=== PATIENT | female | born 1955 | race Caucasian/White ===

== ENCOUNTER → 2016-12-08 | Outpatient (CLI) | payer BC ==
[~2016-12-08] MED LIST: ALBU2.5V4 INH; BUDE0.5A5 NEB; CETI10TA20 PO; CODE118S2 PO; DICY20TA10 PO; EPIN0.153 IM; HYDR12.5 PO; LACT1CAP8 PO; LEVO75TA6 PO; METO-270 PO; MNTL10T PO; NFLOSA25TA PO; OMG1KC PO; VANCORAL PO
[2016-12-08 12:13] LABS: BASOPHILS % (AUTO) 1 % (0-2); EOSINOPHILS # (AUTO) 0.3 10^3uL; EOSINOPHILS % (AUTO) 2 % (0-4); LYMPHOCYTES # (AUTO) 1.9 X10^3; MEAN CORPUSCULAR HEMOGLOBIN 29.5 PG (26.0-34.0); MEAN CORPUSCULAR HGB CONC 34.3 g/dL (31.0-37.0); MEAN CORPUSCULAR VOLUME 86 FL (80-100); MEAN PLATELET VOLUME 10.2 FL (6.0-9.5); MONOCYTES # (AUTO) 1.2 X10^3; MONOCYTES % (AUTO) 9 % (3-11); NEUTROPHILS % (AUTO) 73 % (51-67); PLATELET COUNT 352 10^3uL (150-450); WHITE BLOOD COUNT 13.57 10^3uL (4.0-11.0)
[2016-12-08 12:25] LABS: ANION GAP 16.8 MEQ/L (3-15)
== END ==
LOC: LAB 11:59
PROVIDERS: ATTEND Internal Medicine
DX: E86.0 Dehydration (principal); J20.8 Acute bronchitis due to other specified organisms
CPT/HCPCS: 36415; 80048; 84450; 85025; 86140

== ENCOUNTER → 2016-12-09 | Outpatient (CLI) | payer BC | LOC: LAB 09:35 | PROVIDERS: ATTEND Internal Medicine | DX: R19.7 Diarrhea, unspecified (principal) | CPT/HCPCS: 87324; 87449 ==

== ENCOUNTER → 2016-12-12 | Outpatient (CLI) | payer BC ==
[2016-12-12 15:48] LABS: BASOPHILS % (AUTO) 1 % (0-2); EOSINOPHILS # (AUTO) 0.4 10^3uL; EOSINOPHILS % (AUTO) 3 % (0-4); LYMPHOCYTES # (AUTO) 2.2 X10^3; MEAN CORPUSCULAR HEMOGLOBIN 28.5 PG (26.0-34.0); MEAN CORPUSCULAR HGB CONC 34.4 g/dL (31.0-37.0); MEAN CORPUSCULAR VOLUME 83 FL (80-100); MEAN PLATELET VOLUME 10.1 FL (6.0-9.5); MONOCYTES # (AUTO) 1.2 X10^3; MONOCYTES % (AUTO) 8 % (3-11); NEUTROPHILS # (AUTO) 10.3 X10^3; NEUTROPHILS % (AUTO) 72 % (51-67); PLATELET COUNT 387 10^3uL (150-450); WHITE BLOOD COUNT 14.17 10^3uL (4.0-11.0)
[2016-12-12 16:01] LABS: ANION GAP 14.1 MEQ/L (3-15)
--- NOTE | 2016-12-12 16:11 | Diagnostic Imaging Report ---
CLINICAL INDICATION: Patient with acute bronchitis. EXAM: Chest x-ray, PA and lateral views. COMPARISONS: Chest x-ray dated 06/12/2010. FINDINGS: Lungs/pleura: There is interval development of minimal discoid atelectasis in the lingula region. Otherwise, lungs are clear. There is no pneumothorax. There is no pleural effusion. Mediastinum: Unremarkable. Pulmonary vasculature: Unremarkable. Heart: Unremarkable. Bones/extrathoracic soft tissue: There are degenerative osteophytes scattered throughout the thoracic spine. IMPRESSION: Interval development of minimal lingular discoid atelectasis. Otherwise, there is no radiographic evidence of acute cardiopulmonary process. Dictated by: Dictated on workstation # [id number]
== END ==
LOC: LAB 15:36
PROVIDERS: ATTEND Internal Medicine
DX: I10 Essential (primary) hypertension (principal); J20.8 Acute bronchitis due to other specified organisms; J30.1 Allergic rhinitis due to pollen
CPT/HCPCS: 36415; 71020; 80048; 84450; 85025; 86140

== ENCOUNTER → 2016-12-14 | Outpatient (CLI) | payer BC ==
[2016-12-14] MEDS: ALBUTEROL 0.5% NEB SOLUTION 2.5 MG/0.5 ML VIAL INH SCH ×2 (11:48→15:34)
[2016-12-14] MEDS: BUDESONIDE NEBS 0.5 MG/2ML (PULMICORT) AMP INH SCH ×2 (11:49→15:34)
== END ==
LOC: RT 11:33
PROVIDERS: ATTEND Internal Medicine
DX: J45.41 Moderate persistent asthma with (acute) exacerbation (principal)
CPT/HCPCS: 94640

== ENCOUNTER 2016-12-17 14:19 | Emergency (ER) | payer BC ==
[~2016-12-17] VITALS: Ht 167.6 cm; Wt 96.1 kg
[2016-12-17] MEDS ORDERED: ALBU2.5V4 INH (15:27)
[2016-12-17] MEDS ORDERED: METO-270 PO (15:27)
[2016-12-17] MEDS ORDERED: MNTL10T PO (15:27)
[2016-12-17] MEDS ORDERED: CODE118S2 PO (15:27)
[2016-12-17] MEDS ORDERED: OMG1KC PO (15:27)
[2016-12-17] MEDS ORDERED: CETI10TA20 PO (15:27)
[2016-12-17] MEDS ORDERED: LACT1CAP8 PO (15:27)
[2016-12-17] MEDS ORDERED: NFLOSA25TA PO (15:27)
[2016-12-17] MEDS ORDERED: EPIN0.153 IM (15:27)
[2016-12-17] MEDS ORDERED: BUDE0.5A5 NEB (15:27)
[2016-12-17] MEDS ORDERED: HYDR12.5 PO (15:27)
[2016-12-17] MEDS ORDERED: LEVO75TA6 PO (15:27)
[2016-12-17] MEDS ORDERED: VANCORAL PO (15:27)
[2016-12-17 15:36] LABS: TOTAL PROTEIN 7.1 g/dL (6.4-8.5)
[2016-12-17] MEDS ORDERED: DICYCLOMINE 10 MG (BENTYL) CAP PO ONE (15:55)
[2016-12-17 16:32] LABS: BILIRUBIN,URINE Negative (Negative); CLARITY,URINE Clear; COLOR,URINE Yellow; GLUCOSE, URINE (UA) Negative (Negative); LEUKOCYTE ESTERASE ,URINE Negative (Negative); UROBILINOGEN,URINE 0.2 mg/dL (0.2-1.0)
--- NOTE | 2016-12-17 16:39 | NUR ---
lab states nasal swab unable to be found in lab. dr notified. cl
--- NOTE | 2016-12-17 16:41 | NUR ---
2ND INFLUENZA SPECIMEN OBTAINED. CL
[2016-12-17 16:53] LABS: RBC,URINE None Seen /HPF; URINE CENTRIFUGED VOLUME 12 mL
[2016-12-17 16:59] LABS: INFLUENZA VIRUS TYPE A ANTIBOD Negative (NEGATIVE); INFLUENZA VIRUS TYPE B ANTIBOD Negative (NEGATIVE)
--- NOTE | 2016-12-17 17:33 | NUR ---
DR CORBIN CALLS DR TORO RE PT. CL
[2016-12-17] MEDS ORDERED: DICY20TA10 PO (18:07)
--- NOTE | 2016-12-17 18:13 | Diagnostic Imaging Report ---
PROCEDURE: US abdomen complete. TECHNIQUE: Multiple real-time grayscale images were obtained over the abdomen in various projections. INDICATION: Abdominal pain with nausea. FINDINGS: The liver parenchyma is homogeneous. The liver measures 16 cm in the mid liver axis. The bile ducts are not dilated. The common duct measures 6 mm. The gallbladder shows multiple small gallstones. Gallbladder wall is not thickened at 2 mm. No pericholecystic edema. The portal and hepatic vein are patent. Right kidney measures 12.4 x 6 x 6.4 cm. The left kidney measures 11.9 x 5.4 x 4.9 cm. The pancreas does show a cyst within the head of the pancreas measuring approximately 1.9 x 1.5 cm. The spleen appears normal. There is no ascites. IMPRESSION: 1. Cholelithiasis with multiple gallstones demonstrated. No evidence of gallbladder wall thickening or bile duct dilatation. 2. Cyst in the head of the pancreas measuring 1.9 x 1.5 cm. This does correlate with hypodense lesion noted on the CT scan of 08/07/2013. Dictated by: Dictated on workstation # [id number]
[2016-12-17 18:15] VITALS: BP 113/50
== END 2016-12-17 18:12 | disposition home or self-care (01) ==
LOC: ED 14:21
DX: J06.9 Acute upper respiratory infection, unspecified (principal); R10.84 Generalized abdominal pain; R19.7 Diarrhea, unspecified; R94.5 Abnormal results of liver function studies; Z87.891 Personal history of nicotine dependence
CPT/HCPCS: 36415; 76700; 80076; 81003; 81015; 84443; 87486; 87502; 87581; 87633; 87798; 99283

== ENCOUNTER → 2016-12-17 | Outpatient (CLI) | payer BC ==
[2016-12-17 13:14] LABS: MEAN CORPUSCULAR HEMOGLOBIN 28.2 PG (26.0-34.0); MEAN CORPUSCULAR VOLUME 83 FL (80-100); MEAN PLATELET VOLUME 10.3 FL (6.0-9.5); PLATELET COUNT 356 10^3uL (150-450); WHITE BLOOD COUNT 18.66 10^3uL (4.0-11.0)
[2016-12-17 13:27] LABS: BAND NEUTROPHILS % 0 % (0-6); EOSINOPHILS % 0 % (0-4); LYMPHOCYTES # 0.9 #; MONOCYTES # 0.5 #; MONOCYTES % 3 % (3-11); SEGMENTED NEUTROPHILS % 91 % (51-67); TOTAL CELLS COUNTED 100
[2016-12-17 13:28] LABS: RBC MORPH NORMAL (NORMAL)
[2016-12-17 13:34] LABS: ANION GAP 16.1 MEQ/L (3-15)
--- NOTE | 2016-12-17 14:45 | Diagnostic Imaging Report ---
INDICATION: Asthma with status asthmaticus Comparison study: Chest from December 12. FINDINGS: Frontal and lateral views of the chest demonstrates linear atelectasis in the lingula. Lungs otherwise clear. The heart and vascularity are normal. IMPRESSION: There is mild atelectasis in the lingula. Dictated by: Dictated on workstation # [id number]
== END ==
LOC: RAD 13:02
PROVIDERS: ATTEND Internal Medicine
DX: J45.41 Moderate persistent asthma with (acute) exacerbation (principal); A04.7 Enterocolitis due to Clostridium difficile; I10 Essential (primary) hypertension
CPT/HCPCS: 36415; 71020; 80048; 82150; 83690; 85025; 86140

== ENCOUNTER → 2016-12-20 | Outpatient (REF) ==
[2016-12-20 19:14] LABS: BASOPHILS % (AUTO) 1 % (0-2); EOSINOPHILS # (AUTO) 0.3 10^3uL; EOSINOPHILS % (AUTO) 3 % (0-4); LYMPHOCYTES # (AUTO) 1.4 X10^3; MEAN CORPUSCULAR HEMOGLOBIN 29.9 PG (26.0-34.0); MEAN CORPUSCULAR HGB CONC 34.3 g/dL (31.0-37.0); MEAN CORPUSCULAR VOLUME 87 FL (80-100); MEAN PLATELET VOLUME 11.2 FL (6.0-9.5); MONOCYTES # (AUTO) 0.7 X10^3; MONOCYTES % (AUTO) 8 % (3-11); NEUTROPHILS # (AUTO) 6.9 X10^3; NEUTROPHILS % (AUTO) 74 % (51-67); PLATELET COUNT 309 10^3uL (150-450); WHITE BLOOD COUNT 9.35 10^3uL (4.0-11.0)
== END ==
LOC: LAB 17:28
PROVIDERS: ATTEND Internal Medicine
DX: R19.7 Diarrhea, unspecified (principal); J20.8 Acute bronchitis due to other specified organisms; R74.0 Nonspecific elevation of levels of transaminase and lactic acid dehydrogenase [LDH]
CPT/HCPCS: 84450; 85025; 86140

== ENCOUNTER → 2017-02-21 | Outpatient (REF) | payer BC ==
[2017-02-21 11:57] LABS: BASOPHILS % (AUTO) 0 % (0-2); EOSINOPHILS # (AUTO) 0.3 10^3uL; EOSINOPHILS % (AUTO) 2 % (0-4); LYMPHOCYTES # (AUTO) 1.4 X10^3; MEAN CORPUSCULAR HEMOGLOBIN 28.3 PG (26.0-34.0); MEAN CORPUSCULAR VOLUME 86 FL (80-100); MEAN PLATELET VOLUME 10.4 FL (6.0-9.5); MONOCYTES # (AUTO) 0.7 X10^3; MONOCYTES % (AUTO) 6 % (3-11); NEUTROPHILS # (AUTO) 9.2 X10^3; NEUTROPHILS % (AUTO) 79 % (51-67); PLATELET COUNT 317 10^3uL (150-450); WHITE BLOOD COUNT 11.71 10^3uL (4.0-11.0)
[2017-02-21 12:33] LABS: ERYTHROCYTE SEDIMENTATION RT* 33 mm/hr (0-23)
[2017-02-21 12:34] LABS: ALBUMIN 4.5 g/dL (3.4-5.0); ANION GAP 15.8 MEQ/L (3-15); CALCULATED IONIZED CALCIUM 4.2 mg/dL (3.8-4.6)
== END ==
LOC: LAB 11:33
PROVIDERS: ATTEND Internal Medicine
DX: M54.5 Low back pain (principal); I10 Essential (primary) hypertension; E03.8 Other specified hypothyroidism
CPT/HCPCS: 80053; 80061; 84443; 85025; 85652; 86803

== ENCOUNTER → 2017-04-01 | Outpatient (REF) | payer BC ==
[2017-04-01 16:47] LABS: BASOPHILS % (AUTO) 1 % (0-2); EOSINOPHILS # (AUTO) 0.2 10^3uL; EOSINOPHILS % (AUTO) 2 % (0-4); LYMPHOCYTES # (AUTO) 1.6 X10^3; MEAN CORPUSCULAR HEMOGLOBIN 28.4 PG (26.0-34.0); MEAN CORPUSCULAR HGB CONC 33.1 g/dL (31.0-37.0); MEAN CORPUSCULAR VOLUME 86 FL (80-100); MEAN PLATELET VOLUME 10.7 FL (6.0-9.5); MONOCYTES # (AUTO) 0.9 X10^3; MONOCYTES % (AUTO) 9 % (3-11); NEUTROPHILS # (AUTO) 7.9 X10^3; NEUTROPHILS % (AUTO) 74 % (51-67); PLATELET COUNT 298 10^3uL (150-450); WHITE BLOOD COUNT 10.74 10^3uL (4.0-11.0)
[2017-04-01 16:56] LABS: ANION GAP 17.9 MEQ/L (3-15)
[2017-04-01 16:57] LABS: ALBUMIN 4.4 g/dL (3.4-5.0); TOTAL PROTEIN 8.1 g/dL (6.4-8.5)
[2017-04-01 17:29] LABS: ERYTHROCYTE SEDIMENTATION RT* 32 mm/hr (0-23)
== END ==
LOC: LAB 16:27
PROVIDERS: ATTEND Internal Medicine
DX: R10.11 Right upper quadrant pain (principal); K80.20 Calculus of gallbladder without cholecystitis without obstruction; K58.9 Irritable bowel syndrome, unspecified; I10 Essential (primary) hypertension
CPT/HCPCS: 80048; 80076; 82150; 83690; 85025; 85652

== ENCOUNTER → 2017-04-02 | Outpatient (CLI) | payer BC ==
[2017-04-02 10:40] LABS: BASOPHILS % (AUTO) 1 % (0-2); EOSINOPHILS # (AUTO) 0.2 10^3uL; EOSINOPHILS % (AUTO) 2 % (0-4); LYMPHOCYTES # (AUTO) 1.1 X10^3; MEAN CORPUSCULAR HEMOGLOBIN 28.2 PG (26.0-34.0); MEAN CORPUSCULAR HGB CONC 32.8 g/dL (31.0-37.0); MEAN CORPUSCULAR VOLUME 86 FL (80-100); MEAN PLATELET VOLUME 10.4 FL (6.0-9.5); MONOCYTES # (AUTO) 0.5 X10^3; MONOCYTES % (AUTO) 5 % (3-11); NEUTROPHILS # (AUTO) 7.4 X10^3; NEUTROPHILS % (AUTO) 80 % (51-67); PLATELET COUNT 283 10^3uL (150-450); WHITE BLOOD COUNT 9.24 10^3uL (4.0-11.0)
--- NOTE | 2017-04-02 11:03 | Diagnostic Imaging Report ---
PROCEDURE: US abdomen complete. TECHNIQUE: Multiple real-time grayscale images were obtained over the abdomen in various projections. Comparison with 12/17/2016 INDICATION: Acute upper abdominal pain. FINDINGS: Liver parenchyma appears normal. Bile ducts are not dilated. The common duct measures 3.5 mm. Gallbladder again shows multiple gallstones. No gallbladder wall thickening is demonstrated. No pericholecystic edema. The portal and hepatic vein are patent. There is no ascites. The right kidney measures 11.5 x 5.1 x 6.3 cm. The left kidney measures 11.3 x 5.8 x 5.9 cm. The pancreas is better visualized today than on the previous exam. The cystic structure in the head of the pancreas is slightly more prominent on today's exam. This may be due to improved detail on current images though the main component measured previously is essentially unchanged at approximately 1.9 x 1.5 cm. There do appear to be two smaller adjacent cystic areas measuring approximately 6 mm which were present on the previous exam though less distinct. IMPRESSION: 1. Cholelithiasis with no findings of acute cholecystitis. 2. Multiple complex cysts in the head of the pancreas appear overall to be relatively stable since 12/17/2016. Would consider repeat CT scan of the abdomen utilizing IV contrast with pancreatic protocol. Dictated by: Dictated on workstation # [id number]
[2017-04-02 11:20] LABS: ERYTHROCYTE SEDIMENTATION RT* 28 mm/hr (0-23)
[2017-04-02 11:28] LABS: ALBUMIN 4.4 g/dL (3.4-5.0); ALKALINE PHOSPHATASE 221 U/L (38-126); ANION GAP 15.8 MEQ/L (3-15); BUN/CREATININE RATIO 25 (10-20); CALCULATED IONIZED CALCIUM 4.6 mg/dL (3.8-4.6); TOTAL PROTEIN 7.5 g/dL (6.4-8.5)
== END ==
LOC: RAD 09:31
PROVIDERS: ATTEND Internal Medicine
DX: Z00.00 Encounter for general adult medical examination without abnormal findings (principal); I10 Essential (primary) hypertension; R10.11 Right upper quadrant pain; R10.12 Left upper quadrant pain; K21.9 Gastro-esophageal reflux disease without esophagitis; K80.20 Calculus of gallbladder without cholecystitis without obstruction; J45.30 Mild persistent asthma, uncomplicated; E78.4 Other hyperlipidemia; E03.8 Other specified hypothyroidism
CPT/HCPCS: 36415; 76700; 80053; 80061; 82248; 84443; 84484; 85025; 85652

== ENCOUNTER → 2017-04-03 | Outpatient (CLI) | payer BC | LOC: RT 08:00 | PROVIDERS: ATTEND Internal Medicine | DX: J45.30 Mild persistent asthma, uncomplicated (principal) | CPT/HCPCS: 94060; 94726; 94729 ==

== ENCOUNTER → 2017-04-08 | Outpatient (CLI) | payer BC ==
[2017-04-08 07:53] LABS: ALBUMIN 4.2 g/dL (3.4-5.0); TOTAL PROTEIN 7.6 g/dL (6.4-8.5)
== END ==
LOC: LAB 07:25
PROVIDERS: ATTEND Internal Medicine
DX: R74.0 Nonspecific elevation of levels of transaminase and lactic acid dehydrogenase [LDH] (principal)
CPT/HCPCS: 36415; 80076